=== PATIENT | male | born 1950 | race Caucasian/White ===

== ENCOUNTER 2019-08-19 11:03 | Emergency (ER) | payer SELFPAY ==
[2019-08-19 11:14] VITALS: BMI 32.1
--- NOTE | 2019-08-19 11:51 | EKG ---
Test Reason : Blood Pressure : / mmHG Vent. Rate : 067 BPM Atrial Rate : 067 BPM P-R Int : 170 ms QRS Dur : 100 ms QT Int : 412 ms P-R-T Axes : 058 -04 -01 degrees QTc Int : 435 ms SINUS RHYTHM NO PREVIOUS ECGS AVAILABLE Confirmed by JOEY JIMENEZ MD ([id number]) on 08/19/2019 11:51:02 AM Referred By: Confirmed By:JOEY JIMENEZ MD
[2019-08-19 11:58] LABS: BASO % 0.7 % (0-2.0); EOS % 1.4 % (0-4.5); HEMATOCRIT 46.7 % (35.4-49); HEMOGLOBIN 16.1 GM/dL (11.7-16.9); LYMPH % 27.9 % (8-40); MCH 33.4 pg (25.7-33.7); MCHC 34.5 g/dl (32.0-35.9); MEAN CELL VOLUME 96.7 fl (80-96); MONO % 7.6 % (3.8-10.2); NEUT % 62.4 % (42.8-82.8); PLATELET COUNT 205 K/MM3 (134-434); RBC 4.83 M/mm3 (4.00-5.60); RDW 12.8 % (11.9-15.9); WHITE BLOOD COUNT 6.2 K/mm3 (4.0-10.0)
--- NOTE | 2019-08-19 12:13 | PDOC ---
History of Present Illness - General Chief Complaint: Headache Stated Complaint: HEADACHE Time Seen by Provider: 08/19/19 11:17 History Source: Patient Exam Limitations: No Limitations - History of Present Illness Initial Comments: 08/19/19 11:16 69-year-old male presents to ED with episodic dizziness, generalized headache along with double vision to his right eye 2 weeks ago which is resolved within minutes. 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 Patient states no other associated symptoms and did not follow- up with anyone until today after he told his daughter of his incident. Patient states did actually go to an [facility] on Friday in [place] where he resides and was told he had a normal eye exam. Patient denies any discomfort presently and denies any medical history including diabetes. patient has no complaints of change in weight head injury, or recent illness Timing/Duration: reports: episodic Associated Symptoms: reports: vision changes, other (dizziness) Past History - Travel Traveled outside of the country in the last 30 days: No Close contact w/someone who was outside of country & ill: No - Past Medical History Allergies/Adverse Reactions: Allergies Allergy/AdvReac Type Severity Reaction Status Date / Time No Known Allergies Allergy Verified 08/19/19 11:13 Home Medications: Ambulatory Orders Lisinopril [Prinivil -] 40 mg PO DAILY 08/19/19 Metoprolol Succinate [Kapspargo Sprinkle] 50 mg PO DAILY 08/19/19 COPD: No - Immunization History Immunization Up to Date: No - Psycho Social/Smoking Cessation Hx Smoking History: Never smoked Have you smoked in the past 12 months: No Information on smoking cessation initiated: No Hx Alcohol Use: No Drug/Substance Use Hx: No Patient Lives Alone: No Lives with/in: spouse/SO Review of Systems - Review of Systems Able to Perform ROS?: Yes Constitutional: No: Symptoms Reported HEENTM: Yes: Symptoms Reported (eye x 1 minute), Double Vision Respiratory: No: Symptoms reported Cardiac (ROS): Yes: Lightheadedness ABD/GI: No: Symptoms Reported : No: Symptoms Reported Musculoskeletal: No: Symptoms Reported Integumentary: No: Symptoms Reported Neurological: Yes: Headache, Dizziness. No: Weakness Endocrine: No: Symptoms Reported Hematologic/Lymphatic: No: Symptoms Reported *Physical Exam - Vital Signs Last Vital Signs Temp Pulse Resp BP Pulse Ox 98.2 F 66 16 148/82 96 08/19/19 11:10 08/19/19 11:10 08/19/19 11:10 08/19/19 11:10 08/19/19 11:10 - Physical Exam General Appearance: Yes: Nourished, Appropriately Dressed. No: Apparent Distress HEENT: positive: EOMI, BROOKE, TMs Normal, Pharynx Normal. negative: Pale Conjunctivae Neck: positive: Normal Thyroid Respiratory/Chest: positive: Lungs Clear, Normal Breath Sounds. negative: Respiratory Distress, Accessory Muscle Use Cardiovascular: positive: Regular Rhythm, Regular Rate. negative: Murmur Gastrointestinal/Abdominal: positive: Soft. negative: Tenderness Musculoskeletal: negative: CVA Tenderness Extremity: positive: Normal Inspection Integumentary: positive: Normal Color, Warm, Moist Neurologic: positive: Motor Strength 5/5 (ambulatory) Heart Score/ECG Review - ECG Intrepretation Rhythm: Regular Rhythm (rate 81, no st elevation/depression) ED Treatment Course - LABORATORY CBC & Chemistry Diagram: 08/19/19 11:41 08/19/19 11:41 - RADIOLOGY Radiology Studies Ordered: Category Date Time Status HEAD CT WITHOUT CONTRAST [CT] Stat CT Scan 08/19/19 11:18 Ordered Medical Decision Making - Medical Decision Making 08/19/19 11:21 Chief complaint: Episodic generalized headache which she describes a throbbing pressure accompanied with mild dizziness and double vision to the right eye which lasted about 1 minute. Patient states did not seek treatment until Friday when he went to an eye doctor locally in [place] which told him he had a normal eye exam. Patient now here in the ER due to convincing of his daughter but currently asymptomatic. Exam: Patient with no neurofocal deficits vital signs stable EKG normal sinus rhythm. Plan: Labs, EKG, head CT and will reevaluate 08/19/19 13:35 Laboratory Tests 08/19/19 08/19/19 11:41 11:41 WBC 6.2 Hgb 16.1 Hct 46.7 MCV 96.7 H Absolute Neuts (auto) 3.9 Neutrophils % 62.4 Sodium 135 L Potassium 5.0 Chloride 105 Carbon Dioxide 24 Anion Gap 6 L BUN 23.5 H Creatinine 1.9 H Est GFR (CKD-EPI)AfAm 41.36 Est GFR (CKD-EPI)NonAf 35.69 Calcium 8.9 Total Bilirubin 0.6 ALT 32 Alkaline Phosphatase 126 H Creatine Kinase 72 Troponin I < 0.02 Total Protein 7.[address] negative acute pathology. Patient with borderline high blood pressure and noted elevated creatinine. Daughter and patient are unaware of baseline since patient does not have a primary care physician. I have discussed with him and his daughter that he needs to get a primary care physician to monitor his kidney levels along with monitoring his blood pressure. I will recommend patient follow a low-salt diet and drink plenty of water in the meanwhile 08/19/19 13:40 Patient is going to see Pedro Pablo Lomax who is located in [place] near his home Discharge - Discharge Information Problems reviewed: Yes Clinical Impression/Diagnosis: Headache Condition: Good Disposition: HOME - Follow up/Referral - Patient Discharge Instructions Patient Printed Discharge Instructions: The DASH Diet Additional Instructions: Please follow-up with Pedro Pablo Lomax in [place] and bring copy of your blood work with you along with the EKG done today. Follow a low-salt diet and read over information enclosed on discharge - Post Discharge Activity
[2019-08-19 12:34] LABS: ALBUMIN 3.7 g/dl (3.4-5.0); ALK PHOS 126 U/L (45-117); ANION GAP 6 MMOL/L (8-16); BILIRUBIN,TOTAL 0.6 mg/dL (0.2-1); BLOOD UREA NITROGEN 23.5 mg/dL (7-18); CALCIUM 8.9 mg/dL (8.5-10.1); CHLORIDE 105 mmol/L (98-107); CO2 24 mmol/L (21-32); CREATININE 1.9 mg/dL (0.55-1.3); GLUCOSE,RANDOM 101 mg/dL (74-106); SGOT/AST 18 U/L (15-37); SGPT/ALT 32 U/L (13-61); SODIUM 135 mmol/L (136-145); TOT PROT 7.3 g/dl (6.4-8.2)
[2019-08-19 14:08] VITALS: BP 136/78; PULSE 86; TEMP 98.5
== END 2019-08-19 14:08 | disposition home or self-care (01) ==
LOC: JER 11:03
DX: R51 Headache (principal)
CPT/HCPCS: 36415; 70450-TC; 80053; 82550; 84484; 85025; 93005; 93010; 99283-25